=== PATIENT | male | born 1945 | race Caucasian/White ===

== ENCOUNTER 2018-12-07 20:30 | Inpatient (IN) | payer OTHER ==
[~2018-12-07] VITALS: Ht 182.9 cm; Wt 86.2 kg
[~2018-12-07 20:30] MED LIST: ASPIRIN325 PO; BREO ELLIPTA 21 EACH IH; COMBIVENT INH; EFFIENT10 MG PO; LIPITOR40 MG PO; MULTIVITAMINS1 EAC7 PO; NITROGLYCERIN0.4 MG SUBLING; SPIRIVA INH; TOPROL XL25 MG PO; VITAMIN D1000 UNI1 PO
[2018-12-07 20:40] VITALS: BP 159/74
[2018-12-07] MEDS ORDERED: CARVEDILOL3.125 MG PO (21:00)
[2018-12-07] MEDS ORDERED: IMDUR 30 MG TAB30 M1 PO (21:00)
[2018-12-07] MEDS ORDERED: COMBIVENT RESPIM4 GM INH (21:02)
[2018-12-07 21:03] LABS: URINE BILIRUBIN NEGATIVE (Negative); URINE BLOOD NEGATIVE (Negative); URINE CLARITY CLEAR; URINE COLOR YELLOW; URINE GLUCOSE-RANDOM NEGATIVE (Negative); URINE KETONES NEGATIVE (Negative); URINE LEUKOCYTES-REFLEX NEGATIVE (Negative); URINE NITRITE-REFLEX NEGATIVE (Negative); URINE PROTEIN NEGATIVE (Negative); URINE SPECIFIC GRAVITY 1.015 (1.005-1.030)
[2018-12-07 21:14] LABS: BE 0.4 mmol/L (-2 to +3); PO2 63.7 mmHg (75.0-100.0); pH 7.484 (7.340-7.450)
[2018-12-07 21:15] LABS: HEMATOCRIT 45.6 % (42.0-52.0); HEMOGLOBIN 15.4 gm/dL (14.0-18.0); MCH 32.4 pg (26.0-34.0); MCHC 33.8 g/dL (28.0-37.0); MPV 7.1 fl. (7.2-11.1); NUCLEATED RBCS 0 /100WBC; PLATELET COUNT* 185 thou/uL (150-400); RBC 4.74 mil/uL (4.50-6.00); WBC 15.5 thou/uL (4.0-11.0)
[2018-12-07 21:23] LABS: CALCIUM 8.9 mg/dL (8.5-10.1); POTASSIUM 3.8 mmol/L (3.5-5.1)
[2018-12-07 21:28] LABS: ALBUMIN 3.9 g/dL (3.4-5.0); MAGNESIUM 1.7 mg/dL (1.8-2.4); TOTAL PROTEIN 7.2 g/dL (6.4-8.2)
[2018-12-07 21:42] LABS: ABSOLUTE EOSINOPHILS 0.2 thou/uL (0.0-0.7); ABSOLUTE LYMPHOCYTES 0.9 thou/uL (0.8-5.3); ABSOLUTE MONOCYTES 0.8 thou/uL (0.0-1.2); ABSOLUTE NEUTROPHILS 13.6 thou/uL (1.6-8.1); PLATELET ESTIMATE ADEQUATE
[2018-12-07 22:00] LABS: INR 1.1; PROTIME 11.3 Seconds (9.20-11.50)
[2018-12-07 22:01] LABS: LIPASE 66 U/L (73-393); TROPONIN-I LEVEL <0.06 ng/mL (<0.06)
[2018-12-07 22:31] LABS: INFLUENZA A ANTIGEN Negative (Negative); INFLUENZA B ANTIGEN Negative (Negative)
[2018-12-07 23:08] VITALS: BP 165/82
[2018-12-07 23:15] VITALS: BP 134/68
--- NOTE | 2018-12-07 23:15 | NUR ---
RECEIVED REPORT AND PT TO ROOM AT 2315. DYSPNEIC, O2 ON AT 3L/NC, HOB ELEVATED. PT HAS PACEMAKER, TELEMETRY SHOWING SR WITH 1ST AVB AND PAC. STAYING AT BEDSIDE. SEE ADMISSION ASSESSMENT AND HS.
[2018-12-08 04:00] VITALS: BP 114/65
--- NOTE | 2018-12-08 05:32 | NUR ---
SLEPT WELL. AFEBRILE AT THIS TIME WITH TEMP OF 98.6. NO CHILLING OR DIAPHORESIS. NO COUGH NOTED, O2 ON AT 3L/NC. RESP LESS LABORED AND REG WITH SLEEP. TELEMETRY CONT TO SHOW SR WITH 1ST AVB. NO LONGER AT BEDSIDE.
[2018-12-08 08:00] VITALS: BP 114/58
[2018-12-08 12:04] VITALS: BP 98/57
--- NOTE | 2018-12-08 14:25 | NUR ---
Pt is A&O. Resides at home with his . Normally active and independent. No DME. No hx of HH or SNF. Goal is home at or. Following.
[2018-12-08 16:01] VITALS: BP 107/53
--- NOTE | 2018-12-08 17:07 | NUR ---
PT UP IN ROOM AND HALLS WITH STEADY GAIT. PT DENIES SOA. OCASSIONAL COUGH. TOLERATING PO WELL. IVF INFUSING
[2018-12-08 19:50] VITALS: BP 126/59
[2018-12-09] VITALS: BP 99/79
[2018-12-09 04:00] VITALS: BP 138/67
[2018-12-09 04:44] LABS: HEMATOCRIT 41.4 % (42.0-52.0); HEMOGLOBIN 13.7 gm/dL (14.0-18.0); MCH 31.9 pg (26.0-34.0); MCV 96.6 fL (80.0-100.0); MPV 7.4 fl. (7.2-11.1); RBC 4.29 mil/uL (4.50-6.00); RDW-CV 14.4 % (10.5-14.5); WBC 21.9 thou/uL (4.0-11.0)
[2018-12-09 04:57] LABS: CALCIUM 8.9 mg/dL (8.5-10.1); CREATININE 0.9 mg/dL (0.6-1.3); POTASSIUM 4.5 mmol/L (3.5-5.1)
--- NOTE | 2018-12-09 06:35 | NUR ---
PT CARE ASSUMED AT 1930. SAT MAINTAINED IN RA. ALERT AND ORIENTED X4. CALL LIGHT WITHIN REACH AND BED IN LOW POSITION. DENIES PAIN AND SOB. HOURLY ROUNDING DONE FOR PT SAFETY.
[2018-12-09 08:00] VITALS: BP 145/71
[2018-12-09 12:02] VITALS: BP 137/76
[2018-12-09 15:37] VITALS: BP 140/55
[2018-12-09 20:28] VITALS: BP 161/81
[2018-12-10] VITALS: BP 140/76
[2018-12-10 04:00] VITALS: BP 145/71
[2018-12-10 05:01] LABS: ABSOLUTE LYMPHOCYTES 0.6 thou/uL (0.8-5.3); ABSOLUTE MONOCYTES 0.7 thou/uL (0.0-1.2); HEMATOCRIT 38.9 % (42.0-52.0); HEMOGLOBIN 12.9 gm/dL (14.0-18.0); LYMPHOCYTES 3.2 %; MCH 31.8 pg (26.0-34.0); MCHC 33.1 g/dL (28.0-37.0); MONOCYTES 3.6 %; NUCLEATED RBCS 0 /100WBC; PLATELET COUNT* 163 thou/uL (150-400); POLYS 93.2 %; RBC 4.05 mil/uL (4.50-6.00); RDW-CV 14.1 % (10.5-14.5); WBC 18.3 thou/uL (4.0-11.0)
[2018-12-10 05:15] LABS: CALCIUM 8.7 mg/dL (8.5-10.1); CREATININE 0.8 mg/dL (0.6-1.3); POTASSIUM 4.3 mmol/L (3.5-5.1)
--- NOTE | 2018-12-10 05:50 | NUR ---
PT IS ABLE TO COMMUNICATE HIS NEEDS TO STAFF EFFECTIVELY. HE HAS DENIED THE NEED FOR PAIN MEDICATION UP TO THIS TIME. LIKELY DISCHARGE LATER TODAY.
[2018-12-10 08:00] VITALS: BP 148/72
[2018-12-10 11:50] VITALS: BP 150/70
--- NOTE | 2018-12-10 12:09 | NUR ---
ASSUMED PT CARE AT 0800, AOX4, UP AD IAN, O2 SAT 90'S RA. TRACING SR ON TELE. PT DENIES PAIN. LUNG SOUND COARSE. LAST BM 12/08/18. IV ACCESS INTACT. VSS, AM ASSESSMENT CHARTED. MEDS GIVEN PER JUN. CALL LIGHT WITHIN REACH. WILL CONTINUE TO MONITOR.
[2018-12-10 16:45] VITALS: BP 157/77
[2018-12-10 20:04] VITALS: BP 159/82
[2018-12-11 00:48] VITALS: BP 142/96
[2018-12-11 04:45] VITALS: BP 159/76
--- NOTE | 2018-12-11 05:13 | NUR ---
PT IS ABLE TO COMMUNICATE HIS NEEDS TO STAFF EFFECTIVELY. HE HAS DENIED THE NEED FOR PAIN MEDICATION UP TO THIS TIME. POSSIBLE DISCHARGE LATER TODAY.
[2018-12-11 05:30] LABS: HEMATOCRIT 40.4 % (42.0-52.0); HEMOGLOBIN 13.5 gm/dL (14.0-18.0); MCH 31.8 pg (26.0-34.0); NUCLEATED RBCS 0 /100WBC
[2018-12-11 05:33] LABS: MCHC 33.5 g/dL (28.0-37.0); MCV 94.8 fL (80.0-100.0); MPV 8.2 fl. (7.2-11.1); PLATELET COUNT* 203 thou/uL (150-400); RBC 4.26 mil/uL (4.50-6.00); WBC 14.9 thou/uL (4.0-11.0)
[2018-12-11 05:48] LABS: CALCIUM 8.8 mg/dL (8.5-10.1); CREATININE 0.9 mg/dL (0.6-1.3); POTASSIUM 3.9 mmol/L (3.5-5.1)
[2018-12-11 06:28] LABS: ABSOLUTE LYMPHOCYTES 0.9 thou/uL (0.8-5.3); ABSOLUTE MONOCYTES 0.1 thou/uL (0.0-1.2); ABSOLUTE NEUTROPHILS 13.9 thou/uL (1.6-8.1)
[2018-12-11 06:29] LABS: PLATELET ESTIMATE ADEQUATE
[2018-12-11 06:33] LABS: TOXIC GRANULATION Occasional
[2018-12-11 08:00] VITALS: BP 164/72
--- NOTE | 2018-12-11 10:24 | NUR ---
ASSUMED PT CARE AT 0800, AOX4, UP AD IAN, O2 SAT 90'S RA. TRACING V PACED ON TELE. PT DENIES PAIN, FEELS BETTER TODAY. PT FOR DISCHARGE. VSS, AM ASSESSENT CHARTED. MEDS GIVEN PER MAR. CALL LIGHT WITHIN REACH. WILL CONTINUE TO MONITOR.
[2018-12-11] MEDS ORDERED: PREDNISONE 10 M10 MG PO (10:30)
[2018-12-11] MEDS ORDERED: PROTONIX40 M1 PO (10:32)
[2018-12-11] MEDS ORDERED: AUGMENTIN 875-1 EACH PO (10:32)
[2018-12-11 10:34] VITALS: BP 164/72
--- NOTE | 2018-12-11 11:25 | NUR ---
DISCHARGED PLAN DISCUSSED WITH THE PATIENT. MEDICATION PACKET/SCRIPT GIVEN. TELE, IV REMOVED.REMINDED TO FOLLOW UP WITH PCP. COMMUNICATES UNDERSTANDING. ALL BELONGINGS PACKED AND CHECKED. LEFT THE UNIT AT 1125 AMBULATORY.
== END 2018-12-11 11:25 | disposition home or self-care (01) | DRG 871 ==
LOC: M.ERS 20:30 → M.TBA-ER 22:39 → M.2W 22:39
PROVIDERS: Internal Medicine; Personal Emergency Response Attendant; ADMIT Internal Medicine
DX: A41.9 Sepsis, unspecified organism (principal); J96.01 Acute respiratory failure with hypoxia; J15.6 Pneumonia due to other Gram-negative bacteria; J44.1 Chronic obstructive pulmonary disease with (acute) exacerbation; J44.0 Chronic obstructive pulmonary disease with (acute) lower respiratory infection; I25.10 Atherosclerotic heart disease of native coronary artery without angina pectoris; I10 Essential (primary) hypertension; E83.42 Hypomagnesemia; Z90.49 Acquired absence of other specified parts of digestive tract; Z95.5 Presence of coronary angioplasty implant and graft; Z79.82 Long term (current) use of aspirin; Z79.899 Other long term (current) drug therapy; Z87.891 Personal history of nicotine dependence

== ENCOUNTER → 2018-12-20 | Outpatient (CLI) | payer OTHER ==
[~2018-12-20] MED LIST changes: +AUGMENTIN 875-1 EACH PO; +CARVEDILOL3.125 MG PO; +COMBIVENT RESPIM4 GM INH; +IMDUR 30 MG TAB30 M1 PO; +PREDNISONE 10 M10 MG PO; +PROTONIX40 M1 PO
== END ==
LOC: M.RAD 09:15
DX: J15.8 Pneumonia due to other specified bacteria (principal); J98.4 Other disorders of lung; Z95.0 Presence of cardiac pacemaker; Z95.5 Presence of coronary angioplasty implant and graft

== ENCOUNTER 2021-03-06 04:55 | Inpatient (IN) | payer OTHER ==
[~2021-03-06] VITALS: Ht 182.9 cm; Wt 86.2 kg
[2021-03-06 05:04] VITALS: BP 161/88
[2021-03-06 05:35] LABS: ABSOLUTE BASOPHILS 0.1 thou/uL (0.0-0.2); ABSOLUTE EOSINOPHILS 0.7 thou/uL (0.0-0.7); ABSOLUTE LYMPHOCYTES 0.9 thou/uL (0.8-5.3); ABSOLUTE MONOCYTES 0.8 thou/uL (0.0-1.2); ABSOLUTE NEUTROPHILS 11.1 thou/uL (1.6-8.1); BASOPHILS 0.7 %; HEMATOCRIT 44.9 % (42.0-52.0); HEMOGLOBIN 15.1 gm/dL (14.0-18.0); LYMPHOCYTES 6.5 %; MCH 31.5 pg (26.0-34.0); MCHC 33.6 g/dL (28.0-37.0); MCV 93.7 fL (80.0-100.0); MPV 7.1 fl. (7.2-11.1); NUCLEATED RBCS 0 /100WBC; PLATELET COUNT* 211 thou/uL (150-400); POLYS 81.8 %; RBC 4.79 mil/uL (4.50-6.00); RDW-CV 14.1 % (10.5-14.5); WBC 13.6 thou/uL (4.0-11.0)
[2021-03-06 05:45] LABS: CALCIUM 8.8 mg/dL (8.5-10.1); CREATININE 1.1 mg/dL (0.6-1.3); POTASSIUM 3.8 mmol/L (3.5-5.1)
[2021-03-06 05:56] LABS: ALBUMIN 3.4 g/dL (3.4-5.0); TOTAL BILIRUBIN 0.6 mg/dL (<0.1-1.0); TOTAL PROTEIN 7.2 g/dL (6.4-8.2)
[2021-03-06 07:07] LABS: INFLUENZA A ANTIGEN Negative (Negative); INFLUENZA B ANTIGEN Negative (Negative)
[2021-03-06 09:25] VITALS: BP 148/63
--- NOTE | 2021-03-06 11:12 | EKG ---
[place] [address] ELECTROCARDIOGRAM REPORT Name: NHUNG BOLES Room: [address] ADM IN M.R.#: [id number] Admission: 03/06/21 Attend Phys: Iain Guerrero, Discharge: Date of : 45 Date of Service: 03/06/21 0504 Report #: [id number] THIS REPORT FOR: //name// [facility] ED Test Date: 2021-03-06 Test Time: 05:04:15 Pat Name: NHUNG BOLES Department: Room: [facility] Gender: M Installer Helper: TB : 1945 Requested By: Sanam Faye Order Number: [id number] MD: Marcus Mcbride Measurements Intervals [place] Rate: 104 P: 70 NC: 162 QRS: -85 QRSD: 159 T: 83 QT: 383 QTc: 504 Interpretive Statements Sinus tachycardia atrial sensed and ventricular capture Compared to ECG 09/18/2015 09:07:21 atrial paced beats no longer seen Electronically Signed On 03-06-2021 11:11:53 [employer] by Marcus Mcbride [email or web address] <ELECTRONICALLY SIGNED> By: Marcus Mcbride MD, [facility] 03/06/21 1111 0504 0504 Marcus Mcbride MD, [facility] /EPI
[2021-03-06 12:00] VITALS: BP 110/45
[2021-03-06 16:00] VITALS: BP 109/61
[2021-03-06 20:00] VITALS: BP 131/56
[2021-03-07 03:18] VITALS: BP 118/66
[2021-03-07 06:17] LABS: HEMATOCRIT 39.1 % (42.0-52.0); HEMOGLOBIN 13.2 gm/dL (14.0-18.0); MCH 31.4 pg (26.0-34.0); MCHC 33.9 g/dL (28.0-37.0); MCV 92.7 fL (80.0-100.0); MPV 7.3 fl. (7.2-11.1); RBC 4.22 mil/uL (4.50-6.00); RDW-CV 14.2 % (10.5-14.5); WBC 20.5 thou/uL (4.0-11.0)
[2021-03-07 06:26] VITALS: BP 108/62
[2021-03-07 06:29] LABS: ALBUMIN 2.9 g/dL (3.4-5.0); CREATININE 1.1 mg/dL (0.6-1.3); POTASSIUM 4.1 mmol/L (3.5-5.1); TOTAL BILIRUBIN 0.4 mg/dL (<0.1-1.0); TOTAL PROTEIN 6.7 g/dL (6.4-8.2)
[2021-03-07 08:00] VITALS: BP 140/71
[2021-03-07 12:00] VITALS: BP 133/69
--- NOTE | 2021-03-07 15:12 | NUR ---
CM ASSESSMENT: PT A&O, INDPENDENT WITH ADL'S AND ACTIVE. PT RESIDES AT HOME WITH SPOUSE. PT USES 0 DME. PT HAS 0 HX OF HH OR SNF. NO CM D/C PLANNING NEEDS ANTICIPATED. CM WILL REMAIN AVAILABLE TO ASSIST AND FOLLOW NEEDED.
[2021-03-07 16:00] VITALS: BP 129/62
[2021-03-07 20:00] VITALS: BP 135/66
[2021-03-08 01:12] VITALS: BP 133/66
[2021-03-08 06:22] VITALS: BP 140/80
[2021-03-08 08:00] VITALS: BP 130/75
[2021-03-08 12:00] VITALS: BP 149/69
[2021-03-08 16:00] VITALS: BP 141/77
--- NOTE | 2021-03-08 16:44 | NUR ---
QUEEN'S COUNSEL TRACKING WITH NO CHANGE IN RHYTHM. UP AD IAN AND AMBULATING IN HALLS - GAIT STEADY. LUNGS DIMISHINED WITH WHEEZES, ROOM AIR. TOLERATING DIET. NO COMPLAINTS OF PAIN, DIZZINESS, NAUSEA TO NURSING. CALL LIGHT WITHIN REACH, WILL CONTINUE WITH PLAN OF CARE.
[2021-03-08 20:00] VITALS: BP 156/80
[2021-03-09 01:42] VITALS: BP 151/85
[2021-03-09 06:24] VITALS: BP 150/90
[2021-03-09 07:41] LABS: HEMOGLOBIN 14.4 gm/dL (14.0-18.0); MCH 31.2 pg (26.0-34.0); MCHC 33.6 g/dL (28.0-37.0); MCV 92.7 fL (80.0-100.0); MPV 6.9 fl. (7.2-11.1); RBC 4.63 mil/uL (4.50-6.00); WBC 19.9 thou/uL (4.0-11.0)
[2021-03-09 07:51] LABS: CALCIUM 8.9 mg/dL (8.5-10.1); POTASSIUM 4.2 mmol/L (3.5-5.1)
[2021-03-09] MEDS ORDERED: PROAIR HFA8.5 GM INH (11:14)
[2021-03-09] MEDS ORDERED: LEVOFLOXACIN500 MG PO (11:14)
[2021-03-09] MEDS ORDERED: PREDNISONE 10 M10 MG PO (11:14)
[2021-03-09 11:31] VITALS: BP 150/90
--- NOTE | 2021-03-09 11:36 | NUR ---
DISCONTINUE IV AND TELE. PT UNDERSTANDS ALL FOLLOW UP ORDERS. WILL DISCGHARGE TO HOME.
== END 2021-03-09 12:01 | disposition home or self-care (01) | DRG 177 ==
LOC: M.ERS 04:55 → M.TBA-ER 06:07 → M.2W 06:07
PROVIDERS: Emergency Medicine; Internal Medicine; ADMIT Internal Medicine; ATTEND Internal Medicine
DX: J15.6 Pneumonia due to other Gram-negative bacteria (principal); J96.01 Acute respiratory failure with hypoxia; J44.1 Chronic obstructive pulmonary disease with (acute) exacerbation; J44.0 Chronic obstructive pulmonary disease with (acute) lower respiratory infection; I25.10 Atherosclerotic heart disease of native coronary artery without angina pectoris; Z20.822 Contact with and (suspected) exposure to COVID-19; I10 Essential (primary) hypertension; Z90.49 Acquired absence of other specified parts of digestive tract; Z98.52 Vasectomy status; Z95.5 Presence of coronary angioplasty implant and graft; Z95.0 Presence of cardiac pacemaker; Z87.891 Personal history of nicotine dependence; Z79.899 Other long term (current) drug therapy; Z23 Encounter for immunization